=== PATIENT | female | born 1970 | race Caucasian/White ===

== ENCOUNTER 2019-09-27 19:53 | Emergency (ER) | payer SELFPAY ==
[~2019-09-27] VITALS: Ht 160 cm; Wt 81.7 kg
[~2019-09-27 19:53] MED LIST: BUPR150T2 PO; CEFU500 PO; GABA300 PO; HYDACE5 PO; MECL25 PO; RXOXYACE PO; SERT100 PO
[2019-09-27] MEDS ORDERED: Cleocin HCl300 MG PO (21:20)
[2019-09-27] MEDS ORDERED: Norco 5-325 Ta1 EACH PO (22:07)
== END 2019-09-27 22:15 | disposition home or self-care (01) ==
LOC: ER 19:53
DX: K04.7 Periapical abscess without sinus (principal); F17.200 Nicotine dependence, unspecified, uncomplicated; Z88.0 Allergy status to penicillin; Z88.8 Allergy status to other drugs, medicaments and biological substances; Z79.899 Other long term (current) drug therapy
CPT/HCPCS: 99282

== ENCOUNTER → 2021-02-12 | Outpatient (CLI) | payer SELFPAY ==
[~2021-02-12] MED LIST changes: +Cleocin HCl300 MG PO; +Norco 5-325 Ta1 EACH PO
== END | disposition home or self-care (01) ==
LOC: LAB SHORT 13:21
DX: N39.0 Urinary tract infection, site not specified (principal)
CPT/HCPCS: 87077; 87086; 87186

== ENCOUNTER 2021-04-28 10:36 | Day surgery (SDC) | payer OTHER ==
[~2021-04-28] VITALS: Ht 160 cm; Wt 67.2 kg
[2021-04-28] MEDS ORDERED: ACET325 (11:36)
[2021-04-28] MEDS ORDERED: IBUP200 (11:36)
== END 2021-04-28 13:40 | disposition home or self-care (01) ==
LOC: ORSCSDS 10:36
PROVIDERS: Student in an Organized Health Care Education/Training Program
PROC: 0DBP8ZX Excision of Rectum, Via Natural or Artificial Opening Endoscopic, Diagnostic (ICD-10-PCS; principal; 2021-04-28 13:00)
DX: K62.5 Hemorrhage of anus and rectum (principal); C20 Malignant neoplasm of rectum; Z80.0 Family history of malignant neoplasm of digestive organs; R15.0 Incomplete defecation; F17.210 Nicotine dependence, cigarettes, uncomplicated
CPT/HCPCS: 88305; J2704; J7120

== ENCOUNTER → 2021-05-10 | Outpatient (CLI) | payer OTHER ==
[~2021-05-10] MED LIST changes: +ACET325; +IBUP200
[2021-05-10 15:49] LABS: BASOPHILS ABSOLUTE AUTO 0.01 K/mm3 (0.00-0.23); BASOPHILS PERCENT AUTO 0 % (0-2); EOSINOPHILS ABSOLUTE AUTO 0.08 K/mm3 (0.00-0.68); EOSINOPHILS PERCENT AUTO 1 % (0-6); Hematocrit 35.9 % (33.0-51.0); Hemoglobin 11.5 g/dL (11.5-16.0); IMMATURE GRAN ABSOLUTE AUTO 0.02 K/mm3 (0.00-0.10); IMMATURE GRAN PERCENT AUTO 0 % (0-1); LYMPHOCYTES ABSOLUTE AUTO 1.83 K/mm3 (0.84-5.20); LYMPHOCYTES PERCENT AUTO 20 % (21-46); MONOCYTES ABSOLUTE AUTO 0.49 K/mm3 (0.16-1.47); MONOCYTES PERCENT AUTO 5 % (4-13); Mean Corpuscular Volume 88 fL (80-100); Mean Platelet Volume 11.3 fL (9.1-12.4); NEUTROPHILS ABSOLUTE AUTO 6.73 K/mm3 (1.96-9.15); NEUTROPHILS PERCENT AUTO 74 % (41-73); Platelet Count 419 K/mm3 (150-400); RDW Coefficient Variation 13.8 % (11.7-14.2); RDW Standard Deviation 44.2 fL (35.1-46.3); White Blood Cell Count 9.16 K/mm3 (4.00-11.30)
[2021-05-10 16:09] LABS: Alanine Aminotransfer (ALT/SGP 16 U/L (12-78); Albumin, Blood 3.4 g/dL (3.4-5.0); Albumin/Globulin Ratio 0.7 (0.8-1.8); Alk Phos 66 U/L (50-136); Anion Gap 7 mmol/L (6-16); Aspartate Aminotrans (AST/SGOT 14 U/L (12-37); Bilirubin, Total 0.3 mg/dL (0.1-1.0); Blood Urea Nitrogen 11 mg/dL (8-24); Bun/Creatinine Ratio 16.8 (12.0-20.0); CO2, Blood 25 mmol/L (21-32); Calcium, Blood 9.4 mg/dL (8.5-10.1); Chloride, Blood 107 mmol/L (98-108); Creatinine, Blood 0.66 mg/dL (0.40-1.00); Globulin, Blood 4.6 g/dL (2.2-4.0); Glomerular Filtration Rate >60 (60-); Glucose, Blood 84 mg/dL (70-99); Iron Serum 21 ug/dL (50-170); Potassium, Blood 3.7 mmol/L (3.5-5.5); Sodium, Blood 139 mmol/L (136-145); Total Iron Binding Capacity 352 ug/dL (250-450)
[2021-05-10 16:11] LABS: Ferritin, Serum 25 ng/mL (8-252)
== END | disposition home or self-care (01) ==
LOC: LAB SHORT 14:40 → LAB 14:40
PROVIDERS: Internal Medicine Hematology & Oncology
DX: C20 Malignant neoplasm of rectum (principal); D50.9 Iron deficiency anemia, unspecified
CPT/HCPCS: 80053; 82378; 82728; 83540; 83550; 85025; 85651

== ENCOUNTER 2021-05-23 09:41 | Day surgery (SDC) | payer OTHER ==
[~2021-05-23] VITALS: Ht 160 cm; Wt 66.4 kg
[~2021-05-23 09:41] MED LIST changes: -ACET325; +ACET325 PO; +BUPR75 PO; +CYCL10 PO; +DICY20 PO; +DIVA500EC PO; +DOCU100 PO; +FLUT.05NI; +NORT25 PO; +ORTHO NOVUM PO; +OXYACE7.5T PO; +PROM25 PO; +SERT25 PO; +TRAM50 PO
--- NOTE | 2021-05-23 14:18 | NUR ---
PT REPORTS MINIMAL NECK PAIN AND INCISIONAL SITE, MEDICATED PER ORDERS. DENIES NASUEA, TOLERATES PO FLUIDS s DIFFICULTY. NECK AND CHEST DRESSING CDI. GIVEN RX AND DC INSTRUCTIONS. VERBALIZES AN UNDERSTANDING, NO QUESTIONS. PT DRESSESS SELF s ISSUES. IV DC'D, CATH INTACT AND PRESSURE DRESSING APPLIED. OTD IN NAD VIA WC TO [facility] HOME.
== END 2021-05-23 23:08 | disposition home or self-care (01) ==
LOC: ORSCMMR 09:41 → ORD 11:15 → ORSCMMR 11:15
PROVIDERS: Surgery
PROC: B543ZZA Ultrasonography of Right Jugular Veins, Guidance (ICD-10-PCS; principal; 2021-05-23 11:15)
PROC: 05HM33Z Insertion of Infusion Device into Right Internal Jugular Vein, Percutaneous Approach (ICD-10-PCS; principal; 2021-05-23 11:15)
DX: C20 Malignant neoplasm of rectum (principal); F17.210 Nicotine dependence, cigarettes, uncomplicated
CPT/HCPCS: 77001; A9270; C1788; J0690; J1100; J1642; J2250; J2370; J2405; J2704; J3010; J7120

== ENCOUNTER → 2021-06-03 | Outpatient (CLI) | payer SELFPAY | END | disposition home or self-care (01) | LOC: LAB SHORT 17:05 | DX: N39.0 Urinary tract infection, site not specified (principal) | CPT/HCPCS: 87086 ==

== ENCOUNTER → 2021-08-05 | Outpatient (CLI) | payer SELFPAY | END | disposition home or self-care (01) | LOC: LAB SHORT 15:00 | DX: R30.0 Dysuria (principal) | CPT/HCPCS: 87077; 87086; 87186 ==

== ENCOUNTER → 2021-10-12 | Outpatient (CLI) | payer OTHER ==
[2021-10-13 09:18] LABS: Candida species (DNA Probe) Negative (NEGATIVE); G. vaginalis (DNA Probe) Negative (NEGATIVE); T. vaginalis (DNA Probe) Negative (NEGATIVE)
[2021-10-14 18:06] LABS: HPV 16 Negative (Negative); HPV 18 Negative (Negative); HPV OTHER HR TYPES Negative (Negative)
== END | disposition home or self-care (01) ==
LOC: LAB SHORT 16:29
PROVIDERS: Obstetrics & Gynecology
DX: Z01.419 Encounter for gynecological examination (general) (routine) without abnormal findings (principal); N89.8 Other specified noninflammatory disorders of vagina
CPT/HCPCS: 87480; 87510; 87660

== ENCOUNTER 2021-10-15 23:10 | Inpatient (IN) | payer OTHER ==
[~2021-10-15] VITALS: Ht 160 cm; Wt 52.6 kg
[2021-10-15 23:51] LABS: BASOPHILS ABSOLUTE AUTO 0.01 K/mm3 (0.00-0.23); BASOPHILS PERCENT AUTO 0 % (0-2); EOSINOPHILS PERCENT AUTO 0 % (0-6); Hematocrit 32.7 % (33.0-51.0); Hemoglobin 11.1 g/dL (11.5-16.0); IMMATURE GRAN ABSOLUTE AUTO 0.05 K/mm3 (0.00-0.10); IMMATURE GRAN PERCENT AUTO 0 % (0-1); LYMPHOCYTES PERCENT AUTO 4 % (21-46); MONOCYTES ABSOLUTE AUTO 0.15 K/mm3 (0.16-1.47); MONOCYTES PERCENT AUTO 1 % (4-13); Mean Corpuscular HGB 34.9 pg (26.0-34.0); Mean Corpuscular HGB Conc 33.9 g/dL (31.5-36.5); Mean Corpuscular Volume 103 fL (80-100); Mean Platelet Volume 9.5 fL (9.1-12.4); NEUTROPHILS ABSOLUTE AUTO 10.84 K/mm3 (1.96-9.15); NEUTROPHILS PERCENT AUTO 94 % (41-73); Platelet Count 313 K/mm3 (150-400); RDW Coefficient Variation 14.9 % (11.7-14.2); RDW Standard Deviation 56.7 fL (35.1-46.3); Red Blood Cell Count 3.18 M/mm3 (3.80-5.20); White Blood Cell Count 11.55 K/mm3 (4.00-11.30)
[2021-10-16 00:10] LABS: Alanine Aminotransfer (ALT/SGP 12 U/L (12-78); Albumin, Blood 2.4 g/dL (3.4-5.0); Albumin/Globulin Ratio 0.6 (0.8-1.8); Alk Phos 139 U/L (50-136); Anion Gap 17 mmol/L (6-16); Aspartate Aminotrans (AST/SGOT 13 U/L (12-37); Bilirubin, Total 0.6 mg/dL (0.1-1.0); Blood Urea Nitrogen 5 mg/dL (8-24); Bun/Creatinine Ratio 14.8 (12.0-20.0); CO2, Blood 19 mmol/L (21-32); Calcium, Blood 8.8 mg/dL (8.5-10.1); Chloride, Blood 98 mmol/L (98-108); Creatinine, Blood 0.34 mg/dL (0.40-1.00); Globulin, Blood 3.9 g/dL (2.2-4.0); Glomerular Filtration Rate >60 (60-); Glucose, Blood 59 mg/dL (70-99); Potassium, Blood 2.5 mmol/L (3.5-5.5); Sodium, Blood 134 mmol/L (136-145); Total Protein, Blood 6.3 g/dL (6.4-8.2)
[2021-10-16 02:26] LABS: Source, Urine Clean Catch
[2021-10-16 02:32] LABS: Bilirubin, Urine Neg (Neg); Blood, Urine 5+ (Neg); Glucose Qualitative, Urine Neg (Neg); Ketones, Urine 4+ (Neg); Leukocyte Esterase, Urine 3+ (Neg); Nitrite, Urine Pos (Neg); Protein, Urine Neg (Neg); Urobilinogen, Urine NORM (Normal)
[2021-10-16 02:33] LABS: Appearance, Urine Hazy (Clear); Color, Urine Pale Yellow (P-Yellow)
[2021-10-16 02:37] LABS: Magnesium, Blood 1.4 mg/dL (1.6-2.4)
[2021-10-16 02:41] LABS: Bacteria Mod /hpf; Red Blood Cells, Urine Not Seen /hpf (0-2); Squamous Epithelial Cells Few /hpf (Few); White Blood Cells, Urine TNTC /hpf (0-5)
--- NOTE | 2021-10-16 06:36 | NUR ---
ARRIVAL TO ICU PATIENT ARRIVED TO ICU AT 0540. SHE WAS TRANSFERED OVER TO ICU BED AND CONNECTED TO CEO AND FOUNDER. LEVOPHED STARTED PROMPTLY. PATIENT ALERT AND ORIENTED X 4. C/O LOW BACK PAIN, PATIENT EXPLAINS THAT THIS IS CHRONIC. TEMP 97.7. NSR 90S. PALPABLE PULSES. NO EDEMA. ROOM AIR. CLEAR LUNG SOUNDS. PATIENT DENIES SOB AND/OR CHEST PAIN AT THIS TIME. FREQUENT BM'S IN ED, HOWEVER PATIENT HAS YET TO VOID WHILE IN ICU. PATIENT INSTRUCTED ON HOW TO USE CALL LIGHT. DAUGHTER AT BEDSIDE. PATIENT APPEARS COMFORTABLE AT THIS TIME.
--- NOTE | 2021-10-16 08:00 | NUR ---
TOOK OVER CARE OF PT AT 0700, PT RESTING ON ROOM AIR, 10 OF LEVO RUNNING ON PUMP, MAP WITHIN GOAL.
[2021-10-16] MEDS ORDERED: Percocet 5-3251 EACH PO (09:41)
[2021-10-16] MEDS ORDERED: MIRALAX17 GM PO (09:42)
[2021-10-16] MEDS ORDERED: DOCU100 PO (09:43)
--- NOTE | 2021-10-16 11:39 | NUR ---
Supportive visit this AM. Pt resting in bed and is A&O. Pt's sister at bedside. Pt reports a tolerable 4/10 pain in her rectum area. Engaged in therapeutic listening as Pt reports having a supportive family who assists with any needs she has. Pt intermittently tearful and emotional support offered. Listened as Pt reports next steps for cancer treatment. She states she will receive radiation treatment 5 days a week for 5 weeks, will start oral chemo, and then surgery to remove cancer. Continued therapeutic listening and validated concerns. Pt expresses appreciation and report no other concerns at this time. Spoke with Primary RN and discussed case. Palliative Care will remain available.
--- NOTE | 2021-10-16 16:00 | NUR ---
SUMMARY NEURO; A/O X4, GENERALIZED WEAKNESS CARDIAC; NSR, ON 4 OF LEVO LUNGS;CLEAR THROUGHOUT GI/; HX ACTIVE RECTAL CANCER, UTI, FREQUENT SMALL LOOSE STOOLS SKIN; WNL
--- NOTE | 2021-10-16 21:50 | NUR ---
ASSUMED CARE PATIENT DROWSY BUT EASILY ARROUSABLE. C/O 5/10 PAIN IN ABDOMEN AND LOW BACK. ESCOBEDO, AXOX4. DENIES CHEST PAIN OR SOB AT THIS TIME. ROOM AIR, CLEAR LUNG SOUNDS. NSR 70S-80S. MAP GOAL >65 ON LEVOPHED. PALPABLE PULSES, NO EDEMA. AFEBRILE. NO NAUSEA AT THIS TIME. ENCOURAGING PO INTAKE. FREQUENT URGES FOR BEDPAN. PATIENT RESTING COMFORTABLY AT THIS TIME.
[2021-10-17 03:37] LABS: BASOPHILS ABSOLUTE AUTO 0.01 K/mm3 (0.00-0.23); BASOPHILS PERCENT AUTO 0 % (0-2); EOSINOPHILS ABSOLUTE AUTO 0.03 K/mm3 (0.00-0.68); EOSINOPHILS PERCENT AUTO 0 % (0-6); Hematocrit 27.1 % (33.0-51.0); IMMATURE GRAN ABSOLUTE AUTO 0.03 K/mm3 (0.00-0.10); IMMATURE GRAN PERCENT AUTO 0 % (0-1); LYMPHOCYTES ABSOLUTE AUTO 1.47 K/mm3 (0.84-5.20); LYMPHOCYTES PERCENT AUTO 17 % (21-46); MONOCYTES ABSOLUTE AUTO 0.58 K/mm3 (0.16-1.47); MONOCYTES PERCENT AUTO 7 % (4-13); Mean Corpuscular HGB Conc 33.2 g/dL (31.5-36.5); Mean Corpuscular Volume 105 fL (80-100); Mean Platelet Volume 9.7 fL (9.1-12.4); NEUTROPHILS ABSOLUTE AUTO 6.64 K/mm3 (1.96-9.15); NEUTROPHILS PERCENT AUTO 76 % (41-73); Platelet Count 282 K/mm3 (150-400); RDW Coefficient Variation 15.5 % (11.7-14.2); RDW Standard Deviation 60.2 fL (35.1-46.3); Red Blood Cell Count 2.57 M/mm3 (3.80-5.20); White Blood Cell Count 8.76 K/mm3 (4.00-11.30)
[2021-10-17 04:00] LABS: Anion Gap 4 mmol/L (6-16); Blood Urea Nitrogen 7 mg/dL (8-24); Bun/Creatinine Ratio 18.7 (12.0-20.0); CO2, Blood 27 mmol/L (21-32); Chloride, Blood 107 mmol/L (98-108); Creatinine, Blood 0.37 mg/dL (0.40-1.00); Glomerular Filtration Rate >60 (60-); Glucose, Blood 93 mg/dL (70-99); Magnesium, Blood 1.9 mg/dL (1.6-2.4); Potassium, Blood 3.4 mmol/L (3.5-5.5); Sodium, Blood 138 mmol/L (136-145)
--- NOTE | 2021-10-17 06:03 | NUR ---
SHIFT SUMMARY PATIENT AXOX4, DROWSY YET ARROUSABLE. OCCASIONALLY TEARFUL. PAIN 4-5/10 IN ABDOMEN, LOW BACK, AND RECTUM. TREATED WITH PRN TYLENOL, OXYCODONE, AND HEATING PAD. ROOM AIR. OCCASIONAL COUGH. USING FLUTTER VALVE. NSR 60S-90S. LEVOPHED TITRATED BACK AND FORTH BETWEEN 0 AND 2 FOR A MAP GOAL >65. FREQUENT VOIDS AND BMS VIA BED PENA. TRYING TO ENCOURAGE PO INTAKE. LR @ 50 ML/HR.
--- NOTE | 2021-10-17 07:11 | NUR ---
Receieved report from Jeremiah CORONA. Patient is intubated and sedated. He has 7.5 ET 23 at teeth and settings of 22/350/70/16 and sats low 90%'s, RT in room. He withdrawls from pain. He has PICC line in TURNER and dressing intact and site WNL's and is infusing Heparin 16 units/kg/min, Propofol at 50 mcg/kg/min, and NS TKO. He has 14 Fr fair draining to gravity light ashok colored urine. He is in bilateral soft wrist restraints for line and tube safety, checked skin and circulation. He has OG in place and in infusing VHP at 30 ml/hr goal rate and 30 mlwater flushes Q4 hr. Skin over all in good condition and yeast in some folds.
--- NOTE | 2021-10-17 08:00 | NUR ---
Received report from Jeremiah CORONA. Patient awake in bed and is able to communicate her neds. She is currently getting kidney bladeer US. She ask to use bed ward frequently with small results. She is on RA and sats 99%. She has mediport in RU chest and is infusing LR at 50 ml/hr, Levophed just restarted and 1 mcg/hr, and NS TKO. Systolic 80-90 and as stated restarted levophed. patient stated pain bareable, but would like a tylenol. Patient has 20ga RW and is flushed and SL'd.
--- NOTE | 2021-10-17 10:00 | NUR ---
Patient has called for bedpan about every 30 minutes without success. Increased Levophed to 2 mcg/hr with systolic now 108. Medicated with Tylenol per request. She remains on RA and stats 99%. Mother at bedside.
--- NOTE | 2021-10-17 14:11 | NUR ---
Dr Jones has been by and has written new orders, Patient to receive bolus NS and albulin. She is able to ambulate to bedside cammode and tolerated well. Systolic 130 on Levophed of 2 mcg/min. She has been moving around in bed better. K-pad on back states feels better.
--- NOTE | 2021-10-17 16:22 | NUR ---
Patient remains on RA and sats upper 90%'s. She continues to get up to bed side cammode and now currently has about 200 ml's yellow urine every 30 minutes and small amout of stool smae time light brown in color and soft. She has LR at 100 ml/hr and Levophed at 2 mcg/min for systolics <90. She is alert and oriented and is able to communiacte her needs.
--- NOTE | 2021-10-17 17:24 | NUR ---
ASSUMPTION OF CARE RECEIVED REPORT FROM JAMAR CORONA AT 1700, ASSUMED CARE OF PATIENT. PATIENT SITTING UP IN BED, VISITING WITH VISITOR AT BEDSIDE. EATING DINNER TRAY THAT WAS PROVIDED. VITAL STABLE ON LEVOPHED OF 2MCG/MIN. DENIED NEEDS OR DISCOMFORTS AT THIS TIME. CALL LIGHT IN REACH.
--- NOTE | 2021-10-18 01:19 | NUR ---
ASSUMED CARE 1900 PATIENT ALERT AND CRYING. STATES PAIN IS UNBEARABLE. RECEIVED 5MG OXY 1 HOUR PRIOR. MEDICATED WITH TYLENOL AND CALLED HOSPITALIST FOR ADDITIONAL BREAKTHROUGH PAIN MEDS. ROOM AIR LEVO AT 2 AND WAS QUICKLY TITRATED OFF. 5 MG MIDODRINE TRIAL. FREQUENT COMMODE TRIPS. SMALL MUCOUS/SOFT BM'S. CALL LIGHT IN REACH/ WILL CONTINUE TO MONITOR
[2021-10-18 04:01] LABS: BASOPHILS ABSOLUTE AUTO 0.01 K/mm3 (0.00-0.23); BASOPHILS PERCENT AUTO 0 % (0-2); EOSINOPHILS ABSOLUTE AUTO 0.01 K/mm3 (0.00-0.68); EOSINOPHILS PERCENT AUTO 0 % (0-6); Hematocrit 26.1 % (33.0-51.0); Hemoglobin 8.6 g/dL (11.5-16.0); IMMATURE GRAN ABSOLUTE AUTO 0.01 K/mm3 (0.00-0.10); IMMATURE GRAN PERCENT AUTO 0 % (0-1); LYMPHOCYTES ABSOLUTE AUTO 1.51 K/mm3 (0.84-5.20); LYMPHOCYTES PERCENT AUTO 32 % (21-46); MONOCYTES ABSOLUTE AUTO 0.35 K/mm3 (0.16-1.47); MONOCYTES PERCENT AUTO 7 % (4-13); Mean Corpuscular HGB 35.1 pg (26.0-34.0); Mean Corpuscular Volume 107 fL (80-100); NEUTROPHILS ABSOLUTE AUTO 2.91 K/mm3 (1.96-9.15); NEUTROPHILS PERCENT AUTO 61 % (41-73); Platelet Count 259 K/mm3 (150-400); RDW Coefficient Variation 15.6 % (11.7-14.2); RDW Standard Deviation 61.4 fL (35.1-46.3); Red Blood Cell Count 2.45 M/mm3 (3.80-5.20)
[2021-10-18 04:15] LABS: Anion Gap 5 mmol/L (6-16); Blood Urea Nitrogen 7 mg/dL (8-24); Bun/Creatinine Ratio 19.9 (12.0-20.0); CO2, Blood 27 mmol/L (21-32); Calcium, Blood 8.4 mg/dL (8.5-10.1); Chloride, Blood 110 mmol/L (98-108); Creatinine, Blood 0.35 mg/dL (0.40-1.00); Glomerular Filtration Rate >60 (60-); Glucose, Blood 93 mg/dL (70-99); Magnesium, Blood 1.6 mg/dL (1.6-2.4); Phosphorus, Blood 3.1 mg/dL (2.5-4.9); Potassium, Blood 3.9 mmol/L (3.5-5.5); Sodium, Blood 142 mmol/L (136-145)
--- NOTE | 2021-10-18 06:11 | NUR ---
SHIFT SUMMARY. STARTED SHIFT WITH 8/10 PAIN IN RECTUM/ABDOMEN. RECEIVED ORDER FROM MD FOR 25-50 MCG FENTANYL Q4 PRN WHICH WORKED WELL. FOLLOWED A STRICT PAIN REGIMIN ALTERNATING BETWEEN TYLENOL, 5MG OXYCODONE, AND 25MCG FENTANYL IN ORDER TO KEEP PAIN LEVEL TOLERABLE. LEVOPHED HAS BEEN ON STANDY ALL SHIFT. TRIALED 5MG MIDODRINE WITH GREAT EFFECT. ROOM AIR. TOLERATING PO INTAKE. 100 ML LR/HR CONTINUOUS. FREQUENT BEDSIDE COMMODE TRIPS. MULTIPLE SMALL BMS- REQUIRES STOOL SOFTENERS IN ORDER TO LESSEN PAIN WITH BM'S. PATIENT APPEARS TO BE RESTING COMFORTABLY AT THIS TIME.
--- NOTE | 2021-10-18 07:00 | NUR ---
ASSUME CARE: I have assumed care of this patient.
--- NOTE | 2021-10-18 10:03 | NUR ---
TRANSFER: Report called to [facility]. Pt transported to PCU room 20 via stretcher by RN. Fentanyl patch placed this morning on right deltoid.
--- NOTE | 2021-10-18 10:30 | NUR ---
Pt arrived to room PCU20 from ICU. A/O x4. LS clear, dim in bases. BT hyperactive. HR reg. Pt c/o 09/29 pain in rectom, lower back. States that it is a pressure pain. Trace edema in BLE. Pulses palp. Pt oriented to room and unit. Denies other needs. IVF started per orders. Call light in reach.
--- NOTE | 2021-10-18 17:55 | NUR ---
Shift Summary: Pt currently sitting up in chair eating dinner. VSS since arrival to PCU. Pt has had C/O rectal pain that ranges from 1-7/10. PRN pain medications managing pain well. Pt up independently in room and has been up to bathroom multiple times as well as ambulated a short distance in hallway. Pt appears comfortable, denies needs. Stable at end of shift. Call light in reach.
[2021-10-19 05:11] LABS: BASOPHILS PERCENT AUTO 0 % (0-2); EOSINOPHILS ABSOLUTE AUTO 0.05 K/mm3 (0.00-0.68); EOSINOPHILS PERCENT AUTO 1 % (0-6); Hematocrit 29.3 % (33.0-51.0); Hemoglobin 9.7 g/dL (11.5-16.0); IMMATURE GRAN ABSOLUTE AUTO 0.01 K/mm3 (0.00-0.10); IMMATURE GRAN PERCENT AUTO 0 % (0-1); LYMPHOCYTES ABSOLUTE AUTO 1.65 K/mm3 (0.84-5.20); LYMPHOCYTES PERCENT AUTO 29 % (21-46); MONOCYTES PERCENT AUTO 7 % (4-13); Mean Corpuscular HGB 35.3 pg (26.0-34.0); Mean Corpuscular HGB Conc 33.1 g/dL (31.5-36.5); Mean Corpuscular Volume 107 fL (80-100); Mean Platelet Volume 10.1 fL (9.1-12.4); NEUTROPHILS ABSOLUTE AUTO 3.51 K/mm3 (1.96-9.15); NEUTROPHILS PERCENT AUTO 62 % (41-73); Platelet Count 282 K/mm3 (150-400); RDW Coefficient Variation 15.3 % (11.7-14.2); RDW Standard Deviation 60.3 fL (35.1-46.3); Red Blood Cell Count 2.75 M/mm3 (3.80-5.20); White Blood Cell Count 5.62 K/mm3 (4.00-11.30)
[2021-10-19 05:32] LABS: Alanine Aminotransfer (ALT/SGP 31 U/L (12-78); Albumin, Blood 2.7 g/dL (3.4-5.0); Albumin/Globulin Ratio 0.8 (0.8-1.8); Alk Phos 195 U/L (50-136); Anion Gap 7 mmol/L (6-16); Aspartate Aminotrans (AST/SGOT 31 U/L (12-37); Bilirubin, Total 0.4 mg/dL (0.1-1.0); Blood Urea Nitrogen 10 mg/dL (8-24); Bun/Creatinine Ratio 28.9 (12.0-20.0); CO2, Blood 27 mmol/L (21-32); Calcium, Blood 9.1 mg/dL (8.5-10.1); Chloride, Blood 105 mmol/L (98-108); Creatinine, Blood 0.35 mg/dL (0.40-1.00); Globulin, Blood 3.3 g/dL (2.2-4.0); Glomerular Filtration Rate >60 (60-); Glucose, Blood 82 mg/dL (70-99); Magnesium, Blood 1.7 mg/dL (1.6-2.4); Phosphorus, Blood 3.1 mg/dL (2.5-4.9); Potassium, Blood 3.7 mmol/L (3.5-5.5); Sodium, Blood 139 mmol/L (136-145)
--- NOTE | 2021-10-19 05:45 | NUR ---
shift summary pt rested well through the night. alert and oriented, able to make needs known. cooperative with plan of care. tele reads nsr - no c/o chest pain. sats >97% on room air. voids independently to bathroom, c/o some urgency to have bm but struggles for bm d/t rectal mass. pain in rectum and chronic back pain - see emar. mediport in r chest deaccessed wnl. 20g r fa sl. vss. call light within reach, bed in lowest position. will continue to monitor.
--- NOTE | 2021-10-19 11:29 | NUR ---
AM NOTE: PATIENT ALERT AND ORIENTED X4. NEURO WNL. SLIGHTLY WEAK ON FEET. STATES SHE FEELS HER FEET ARE SWOLLEN AND IT CAN BE HARD TO WALK AT TIMES. ON ROOM AIR SATING ABOVE 94%. DENIES SOB. TELE SHOWING SINUS RHYTHM WITH HR 70'S. DENIES CHEST PAIN/PRESSURE. BP STABLE. COMPLAINS OF ABDOMINAL FULLNESS AND AT TIMES PAIN. NOT ABLE TO HAVE BOWEL MOVEMENT DESPITE BOWEL CARE MEDS THIS AM. MORE BOWEL CARE MEDS ON BOARD. DUE TO RECTAL CANCER, PATIENT HAS HARD TIME SITTING. PAIN RELIEVED WITH REPOSITIONING AND EMAR MEDICATIONS. DR. LEMON BY TO CHECK ON PATIENT. PLAN TO MONITOR FOR BM, WILL KEEP DR. LEMON UPDATED ON BOWEL STATUS. ANTIBIOTICS INFUSED THIS AM. USING CALL LIGHT. UP IND TO BATHROOM. DAUGHTER IN ROOM AT THIS TIME. WILL CONTINUE TO MONITOR.
--- NOTE | 2021-10-19 17:27 | NUR ---
SHIFT SUMMARY: NO ACTUE CHANGES. NEURO REMAINS UNCHANGED. ON ROOM AIR. TELE SHOWING SINUS RHYTHM WITH HR 70-80'S. DENIES CHEST PAIN/PRESSURE. BP REMAINS STABLE. COMPLAINS OF OVERALL PAIN, MANAGED PER EMAR. ABLE TO GET PAIN DOWN TO 2/10. AT IT'S WORSE PATIENT RATED PAIN 7/10. NOT ABLE TO HAVE BOWEL MOVMENT. LACTULOSE GIVEN PER EMAR. PATIENT NOT WANTING SUPPOSITORY DUE TO RECTAL PAIN. BILATERAL LOWER EXTREMITY ULTRASOUND COMPLETED TO RULE OUT DVT. SECURITY AND COMPLIANCE ANALYST NOTIFIED THIS RN, RESULTS - NEGATIVE FOR DVT. PATIENT MADE AWARE. EATING DINNER AT THIS TIME. WILL CONTINUE TO MONITOR. CALL LIGHT IN REACH.
--- NOTE | 2021-10-19 17:56 | NUR ---
UPDATE: PATIENT WAS ABLE TO HAVE LARGE LIQUID/SOFT BOWEL MOVEMENT. 2ND DOSE OF LACTULOSE HELD AT THIS TIME. FEELS ABDOMINAL RELIEF.
--- NOTE | 2021-10-20 06:08 | NUR ---
SHIFT SUMMARY PT RESTED WELL THROUGH THE NIGHT. ALERT AND ORIENTED, ABLE TO MAKE NEEDS KNWON. COOPERATIVE WITH PLAN OF CARE. SATS >95% ON ROOM AIR. TELE READS NSR. NO C/O CHEST PAIN. INDEPENDENT IN ROOM - VOIDS AND BM'S TO TOILET. GOAL IS BETTER PAIN MANAGEMENT - SEE EMAR. VSS. CALL LIGHT WITHIN REACH, BED IN LOWEST POSIITON. WILL CONTINUE TO MONITOR.
--- NOTE | 2021-10-20 09:42 | NUR ---
CARE ASSUMPTION THIS RN ASSUMED CARE AT 0700 FROM SYLVIA RN. PATIENT IS ALERT AND ORIENTED X4. VSS. TELE SR. GORDY REPORTS NO CHEST PAIN/PRESSURE OR SHORTNESS OF BREATH. STRONG RADIAL PULSE BILATERALLY, WEAK PEDIS PULSE BILATERALL. PATIENT HAS CLEAR AND DIM LUNG SOUNDS ON RA IN THE ROOM WITH SPO2 >95%. PATIENT ABD IS TENDER AND HYPERACTIVE. PATIENT HAS HAD MULTIPLE BOWEL MOVEMENTS THIS AM. SKIN IS FRAGILE AND PATIENT HAS BRUISIING ON ABD FROM LOVENOX SHOT. PATIENT IS INDEPENDENT IN THE ROOM AND CALLS IF SHE NEEDS ASSISTANCE. CALL LIGHT IS WITHIN REACH AND BED IN LOWEST POSITION. PATIENT HAS NO QUESTIONS OR CONCERNS THIS AM. WILL CONTINUE TO MONITOR AND PROVIDE CARE
[2021-10-20] MEDS ORDERED: FENTANYL1 EA10 TOP (10:38)
[2021-10-20] MEDS ORDERED: MIDO5 PO (10:49)
[2021-10-20] MEDS ORDERED: PREPARATION H C26 GM PR (10:55)
[2021-10-20] MEDS ORDERED: VISBIOME 112.51 EACH PO (10:56)
[2021-10-20] MEDS ORDERED: Adult Glycerin1 EACH PR (11:02)
[2021-10-20] MEDS ORDERED: LACT10SY PO (11:06)
[2021-10-20] MEDS ORDERED: SENN187 PO (11:07)
--- NOTE | 2021-10-20 12:25 | NUR ---
DISCHARGE GORDY RECEIVED DISCHARGE INSTRUCTIONS AND EDUCATION. THIS RN WENT OVER THE NEW MEDICATIONS SHE WILL BE TAKING AND DISCUSSED FOLLOW UP APPOINTMENTS WITH PROVIDERS. THE PATIENT AND FRINED IN THE ROOM VERABLIZED UNDERSTANDING AND HAD NO QUESTIONS. MEDICATIONS WERE FAXED OVER TO [facility] AND WE RECEIVED CONFORMATION OF THEM. PATIENT WAS IN NO DISTRESS WHEN LEAVING THE HOSPITAL.
== END 2021-10-20 12:10 | disposition home or self-care (01) | DRG 871 ==
LOC: ER 23:10 → ICUW 10-16 04:10 → PCU 10-18 10:40
PROVIDERS: Internal Medicine; Internal Medicine Critical Care Medicine; Student in an Organized Health Care Education/Training Program; ADMIT Internal Medicine
PROC: 3E03329 Introduction of Other Anti-infective into Peripheral Vein, Percutaneous Approach (ICD-10-PCS; principal; 2021-10-16)
PROC: 3E033XZ Introduction of Vasopressor into Peripheral Vein, Percutaneous Approach (ICD-10-PCS; 2021-10-16)
DX: A41.51 Sepsis due to Escherichia coli [E. coli] (principal); R65.21 Severe sepsis with septic shock; C20 Malignant neoplasm of rectum; E87.1 Hypo-osmolality and hyponatremia; E87.6 Hypokalemia; M54.9 Dorsalgia, unspecified; G89.29 Other chronic pain; E83.42 Hypomagnesemia; K59.00 Constipation, unspecified; F17.200 Nicotine dependence, unspecified, uncomplicated; Z88.0 Allergy status to penicillin; Z88.5 Allergy status to narcotic agent; Z98.51 Tubal ligation status; Z92.21 Personal history of antineoplastic chemotherapy; Z92.3 Personal history of irradiation; Z79.899 Other long term (current) drug therapy; Z28.21 Immunization not carried out because of patient refusal
CPT/HCPCS: 36415; 71045; 76770; 80048; 80053; 81001; 82947; 83605; 83735; 84100; 84132; 84484; 85025; 87040; 87077; 87086; 87186; 93005; 93010; 93970; 96365; 96367; 96375; 99285-25; A9270; J0696; J1642; J1650; J1885; J2405; J3010; J3475; J3480; J7030; J7050; J7060; J7120; P9046

== ENCOUNTER 2022-02-16 13:51 | Emergency (ER) | payer OTHER ==
[~2022-02-16] VITALS: Ht 165.1 cm; Wt 49.9 kg
[~2022-02-16 13:51] MED LIST changes: +Adult Glycerin1 EACH PR; +CEPH500 PO; +FENTANYL1 EA10 TOP; +LACT10SY PO; +MIDO5 PO; +MIRALAX17 GM PO; +PREPARATION H C26 GM PR; +Percocet 5-3251 EACH PO; +SENN187 PO; +VISBIOME 112.51 EACH PO
== END 2022-02-16 16:59 | disposition home or self-care (01) ==
LOC: ER 13:51
DX: Z43.2 Encounter for attention to ileostomy (principal); F17.200 Nicotine dependence, unspecified, uncomplicated; Z88.0 Allergy status to penicillin; Z88.5 Allergy status to narcotic agent; Z91.09 Other allergy status, other than to drugs and biological substances; Z79.899 Other long term (current) drug therapy
CPT/HCPCS: 99282

== ENCOUNTER → 2022-03-28 | Outpatient (CLI) | payer OTHER | END | disposition home or self-care (01) | LOC: LAB SHORT 16:58 → LAB 16:58 | DX: R31.9 Hematuria, unspecified (principal) | CPT/HCPCS: 87077; 87086; 87186 ==

== ENCOUNTER → 2022-06-26 | Outpatient (CLI) | payer OTHER | END | disposition home or self-care (01) | LOC: LAB SHORT 14:20 → LAB 14:20 | DX: R30.0 Dysuria (principal) | CPT/HCPCS: 87086 ==

== ENCOUNTER 2022-11-10 11:38 | Day surgery (SDC) | payer OTHER ==
[~2022-11-10] VITALS: Ht 160 cm; Wt 53.3 kg
[2022-11-10] MEDS ORDERED: GABA300 (12:06)
[2022-11-10] MEDS ORDERED: FLUT.05NI (12:07)
[2022-11-10 13:15] VITALS: BP 111/68
== END 2022-11-10 13:14 | disposition home or self-care (01) ==
LOC: ORSCSDS 11:38
PROVIDERS: Student in an Organized Health Care Education/Training Program
PROC: 0DBN8ZX Excision of Sigmoid Colon, Via Natural or Artificial Opening Endoscopic, Diagnostic (ICD-10-PCS; principal; 2022-11-10 12:45)
PROC: 0DBE8ZX Excision of Large Intestine, Via Natural or Artificial Opening Endoscopic, Diagnostic (ICD-10-PCS; principal; 2022-11-10 12:45)
DX: Z85.048 Personal history of other malignant neoplasm of rectum, rectosigmoid junction, and anus (principal); Z86.010 Personal history of colon polyps; K63.5 Polyp of colon; K57.30 Diverticulosis of large intestine without perforation or abscess without bleeding; F17.210 Nicotine dependence, cigarettes, uncomplicated; Z79.899 Other long term (current) drug therapy
CPT/HCPCS: 88305; J2704; J7120

== ENCOUNTER → 2022-12-16 | Outpatient (CLI) | payer OTHER ==
[~2022-12-16] MED LIST changes: +GABA300
== END | disposition home or self-care (01) ==
LOC: LAB SHORT 14:51
DX: N39.0 Urinary tract infection, site not specified (principal)
CPT/HCPCS: 87086

== ENCOUNTER 2023-08-08 10:19 | Day surgery (SDC) | payer OTHER ==
[~2023-08-08] VITALS: Ht 160 cm; Wt 63.9 kg
[~2023-08-08 10:19] MED LIST changes: +ACET500 PO; +Bentyl20 MG; +DULOXETINE HCL60 MG PO; +OXYCODONE-ACET1 EA13 PO
[2023-08-08] MEDS ORDERED: DULO60 (10:37)
[2023-08-08 12:23] VITALS: BP 135/77
== END 2023-08-08 12:23 | disposition home or self-care (01) ==
LOC: ORSCSDS 10:19
PROVIDERS: Specialist
PROC: 0DBK8ZX Excision of Ascending Colon, Via Natural or Artificial Opening Endoscopic, Diagnostic (ICD-10-PCS; principal; 2023-08-08 11:15)
DX: Z85.048 Personal history of other malignant neoplasm of rectum, rectosigmoid junction, and anus (principal); F17.210 Nicotine dependence, cigarettes, uncomplicated; Z80.0 Family history of malignant neoplasm of digestive organs; K57.30 Diverticulosis of large intestine without perforation or abscess without bleeding; Z79.899 Other long term (current) drug therapy
CPT/HCPCS: 88305; J2704; J7120

== ENCOUNTER 2024-02-04 08:19 | Day surgery (SDC) | payer OTHER ==
[~2024-02-04] VITALS: Ht 160 cm; Wt 69.7 kg
[~2024-02-04 08:19] MED LIST changes: +DULO60; +Lactated Ringer's 1,000 ML IV ONE; +propofoL 50 ML IV ONE
[2024-02-04] MEDS ORDERED: Lactated Ringer's 1,000 ML IV ONE (09:11)
[2024-02-04 10:30] VITALS: BP 120/57
== END 2024-02-04 10:23 | disposition home or self-care (01) ==
LOC: ORSCSDS 08:19
PROVIDERS: Specialist
PROC: 0DBK8ZX Excision of Ascending Colon, Via Natural or Artificial Opening Endoscopic, Diagnostic (ICD-10-PCS; principal; 2024-02-04 09:45)
DX: Z85.048 Personal history of other malignant neoplasm of rectum, rectosigmoid junction, and anus (principal); K63.5 Polyp of colon; Z80.0 Family history of malignant neoplasm of digestive organs; K57.30 Diverticulosis of large intestine without perforation or abscess without bleeding; F41.9 Anxiety disorder, unspecified; K59.09 Other constipation
CPT/HCPCS: 88305; J2704; J7120

== ENCOUNTER → 2025-06-01 | Outpatient (CLI) | payer OTHER ==
[~2025-06-01] MED LIST changes: -Lactated Ringer's 1,000 ML IV ONE; -propofoL 50 ML IV ONE
[2025-06-01 18:56] LABS: Source, Urine Clean Catch
[2025-06-01 19:01] LABS: Yeast/Fungi Urine Few /hpf
== END ==
LOC: LAB SHORT 18:54 → LAB 18:54
PROVIDERS: Physician Assistant Medical
DX: R30.0 Dysuria (principal)
CPT/HCPCS: 81015